=== PATIENT | female | born 1955 | race Caucasian/White ===

== ENCOUNTER 2024-01-14 07:05 | Day surgery (SDC) | payer MEDICARE ==
[2024-01-12 10:19] VITALS: BMI 48.9
[~2024-01-14 07:05] MED LIST: Fluorouracil 100 MG, Enoxaparin 25 MG, EPINEPHrine 0.3 MG in Ophthalmic Irrigation Solu... IRR SCH
[2024-01-14] MEDS ORDERED: Cyclopentolate 1% Opth Drop 2 ML BOT ONE (07:44)
[2024-01-14] MEDS ORDERED: PHENYLephrine 2.5% Ophth Soln 15 ml Bottle ONE (07:44)
[2024-01-14] MEDS ORDERED: Midazolam HCl 2 mg/2 ml Vial ONE (07:58)
[2024-01-14] MEDS ORDERED: Maxitrol 0.1% Opth Oint 3.5 GM TUBE ONE (08:49)
[2024-01-14] MEDS ORDERED: Lidocaine 1% PF 5 ML VIAL ONE (08:49)
[2024-01-14] MEDS ORDERED: TISSUEBLUE 0.5 ML SYRINGE IO ONE (08:49)
[2024-01-14] MEDS ORDERED: Lidocaine 4% PF 5 ML AMP ONE (08:49)
[2024-01-14] MEDS ORDERED: Enoxaparin 30 MG (0.3 mL) SYRINGE ONE (08:49)
[2024-01-14] MEDS ORDERED: CEFAZOLIN 1 GM VIAL ONE (08:49)
[2024-01-14] MEDS ORDERED: Triamcinolone 40 MG/ML VIAL ONE (08:49)
[2024-01-14] MEDS ORDERED: PROPOFOL 200 MG/20 ML VIAL ONE (08:49)
[2024-01-14] MEDS ORDERED: Bupivacaine 0.75% 10 ML VIAL ONE (08:49)
== END 2024-01-14 10:34 | disposition home or self-care (01) ==
LOC: SDC 07:05
PROVIDERS: ATTEND Ophthalmology Retina Specialist
PROC: 08T53ZZ Resection of Left Vitreous, Percutaneous Approach (ICD-10-PCS; principal; 2024-01-14)
DX: H35.372 Puckering of macula, left eye (principal)
CPT/HCPCS: 67041; 82962; 93005; J0171; J0690; J1650; J2250; J2704; J3301; J3490; J9190; 36416; 93010